=== PATIENT | female | born 1955 | race African-American/Black ===

== ENCOUNTER 2020-03-19 12:55 | Emergency (ER) | payer BC, SELFPAY ==
[~2020-03-19] VITALS: Ht 160 cm; Wt 54.0 kg
[2020-03-19 12:55] VITALS: BP_SYST 150
[2020-03-19 14:33] LABS: BASOPHILS % (AUTO) 0.8 % (0.0-2.0); EOSINOPHILS % (AUTO) 0.4 % (0.0-4.0); HEMATOCRIT 40.4 % (36-48); HEMOGLOBIN 13.6 g/dL (12.0-16.0); LYMPHOCYTES # (AUTO) 0.9 K/uL (1.0-5.5); LYMPHOCYTES % (AUTO) 19.5 % (20.5-51.5); MEAN CORPUSCULAR HEMOGLOBIN 32 pg (27-31); MEAN CORPUSCULAR HGB CONC 34 % (32-36); MEAN CORPUSCULAR VOLUME 96 fL (79.0-98.0); MONOCYTES # (AUTO) 0.2 K/uL (0.0-1.0); NEUTROPHILS # (AUTO) 3.5 K/uL (1.8-7.7); NEUTROPHILS % (AUTO) 74.3 % (40.0-70.0); PLATELET COUNT (AUTO) 345 K/uL (130-430); RED BLOOD CELL COUNT(AUTO) 4.19 MIL/uL (4.2-6.2); RED CELL DISTRIBUTION WIDTH 13.6 % (9.0-15.0); WHITE BLOOD COUNT (AUTO) 4.8 K/uL (4.8-10.8)
[2020-03-19 14:42] LABS: CALCIUM 9.4 mg/dL (8.4-11.0); CREATININE 0.95 mg/dL (0.55-1.30); POTASSIUM 3.2 mmol/L (3.5-5.1)
[2020-03-19 14:48] LABS: ALBUMIN 3.9 g/dL (3.4-4.8); TOTAL BILIRUBIN 0.9 mg/dL (0.0-1.0)
[2020-03-19 15:25] LABS: CKMB RELATIVE INDEX 0.5 (0.0-2.9); CREATINE KINASE MB 1.7 ng/mL (0-3.6)
[2020-03-19 15:26] VITALS: BP_SYST 145
== END 2020-03-19 15:25 | disposition home or self-care (01) ==
LOC: EEVIPCON 12:55 → SED 12:55
DX: J06.9 Acute upper respiratory infection, unspecified (principal); E11.9 Type 2 diabetes mellitus without complications; I10 Essential (primary) hypertension; Z20.828 Contact with and (suspected) exposure to other viral communicable diseases
CPT/HCPCS: 36415; 71045; 80053; 82550; 82553; 83880; 84484; 85025; 93005; 99285; U0002

== ENCOUNTER 2024-07-24 07:38 | Emergency (ER) | payer BC ==
[~2024-07-24] VITALS: Ht 160 cm; Wt 49.9 kg
[2024-07-24 07:46] VITALS: BP_SYST 131; PULSE 95; RESP 18; TEMP 98.3; O2SAT 98
[2024-07-24] MEDS ORDERED: CLIN300C3 PO (08:03)
[2024-07-24 08:12] VITALS: BP_SYST 131; PULSE 95; RESP 18; TEMP 98.3; O2SAT 98
== END 2024-07-24 08:13 | disposition home or self-care (01) ==
LOC: SED 07:38
DX: K04.7 Periapical abscess without sinus (principal); E11.9 Type 2 diabetes mellitus without complications; I10 Essential (primary) hypertension
CPT/HCPCS: 99283